=== PATIENT | female | born 2000 | race Two or more races ===

== ENCOUNTER 2020-01-05 21:05 | Outpatient (CLI) | payer BC, MEDICAID ==
[~2020-01-05] VITALS: Ht 157.5 cm; Wt 80.0 kg
[2020-01-05] MEDS ORDERED: PREN1TAB60 PO (21:38)
[2020-01-05] MEDS ORDERED: LACTATED RINGERS 1,000 ML IVBOLUS ONE (22:00)
[2020-01-05] MEDS ORDERED: ONDANSETRON 2MG/ML, 2ML IVPush PRN (22:00)
[2020-01-05] MEDS ORDERED: ONDANSETRON ODT 4 MG PO ONE (22:00)
[2020-01-05 22:01] LABS: MICROSCOPIC NOT IND
[2020-01-05 22:37] LABS: MEAN CORPUSCULAR HEMOGLOBIN 26.8 pg (27.0-34.8); MEAN CORPUSCULAR HGB CONC 32.6 g/dL (32.4-35.8); MEAN CORPUSCULAR VOLUME 82.2 fL (80-100); MEAN PLATELET VOLUME 9.3 fL (7.4-10.4); PLATELET COUNT 294 x10^3/uL (130-400); RED BLOOD COUNT 4.69 x10^6/uL (3.82-5.3); RED CELL DISTRIBUTION WIDTH 14.3 % (9.6-15.2)
[2020-01-05] MEDS ORDERED: ONDANSETRON 2MG/ML, 2ML ONE (22:37)
[2020-01-05 22:40] VITALS: BP 111/67
[2020-01-05 22:48] LABS: ALANINE AMINOTRANSFERASE 22 U/L (12-78); ALBUMIN 2.5 g/dL (3.4-5.0); ANION GAP 10 mmol/L (5-15); CALCIUM 8.8 mg/dL (8.5-10.1); CHLORIDE 104 mmol/L (98-107); CREATININE 0.59 mg/dL (0.55-1.02)
[2020-01-05 22:51] LABS: ALKALINE PHOSPHATASE 155 U/L (45-117); BILIRUBIN,TOTAL 0.4 mg/dL (0.2-1.0); TOTAL PROTEIN 7.1 g/dL (6.4-8.2)
[2020-01-05 22:59] LABS: MD YES
[2020-01-05 23:01] LABS: BASOS% (MANUAL) 1 % (0-1); LYMPH#(MANUAL) 3.56 x10^3/uL (1-6.1); LYMPHS% (MANUAL) 18 % (22-44); MONOS#(MANUAL) 1.58 x10^3/uL (0.3-2.7); MONOS% (MANUAL) 8 % (2-9); SEG#(MANUAL) 14.45 x10^3/uL (1.8-8); SEGS% (MANUAL) 73 % (42-75)
[2020-01-05 23:02] LABS: <PLATELET ESTIMATE> ADEQUATE; <PLT MORPHOLOGY> NORMAL PLT MORPH; <RBC MORPHOLOGY> NORMAL
== END 2020-01-06 00:18 | disposition home or self-care (01) ==
LOC: LDOP 21:05
PROVIDERS: ATTEND Obstetrics & Gynecology
DX: R11.2 Nausea with vomiting, unspecified (principal); R10.11 Right upper quadrant pain
CPT/HCPCS: 36415; 59025; 76705; 80053; 81003; 82150; 83690; 85025; 87086; 96361; 96374; J2405; J7120; 96360; 96366

== ENCOUNTER 2020-02-21 04:29 | Outpatient (CLI) | payer BC, MEDICAID ==
[~2020-02-21] VITALS: Ht 157.5 cm; Wt 90.0 kg
[~2020-02-21 04:29] MED LIST: PREN1TAB60 PO
[2020-02-21 04:47] VITALS: BP 120/70
== END 2020-02-21 04:45 | disposition home or self-care (01) ==
LOC: LDOP 04:29
PROVIDERS: ATTEND Obstetrics & Gynecology
DX: Z02.9 Encounter for administrative examinations, unspecified (principal)

== ENCOUNTER 2020-03-03 05:56 | Inpatient (IN) | payer BC, MEDICAID ==
[~2020-03-03] VITALS: Ht 157.5 cm; Wt 94.1 kg
[2020-03-03] MEDS ORDERED: OXYTOCIN 30U/ 0.9% NaCL 500ML 500 ML IV ONE (06:01)
[2020-03-03 06:12] VITALS: BP 134/84
[2020-03-03 06:26] LABS: BASOPHILS # (AUTO) 0.07 x10^3/uL (0-0.3); BASOPHILS % (AUTO) 0 % (0-1); EOSINOPHILS % (AUTO) 1 % (1-7); LYMPHOCYTES # (AUTO) 2.83 x10^3/uL (1-6.1); LYMPHOCYTES % (AUTO) 19 % (22-44); MD NO; MEAN CORPUSCULAR HEMOGLOBIN 25.6 pg (27.0-34.8); MEAN CORPUSCULAR HGB CONC 32.6 g/dL (32.4-35.8); MEAN PLATELET VOLUME 9.7 fL (7.4-10.4); MONOCYTES # (AUTO) 0.78 x10^3/uL (0-1.4); MONOCYTES % (AUTO) 5 % (2-9); NEUTROPHILS % (AUTO) 75 % (42-75); PLATELET COUNT 305 x10^3/uL (130-400); RED BLOOD COUNT 4.59 x10^6/uL (3.82-5.3); RED CELL DISTRIBUTION WIDTH 16.8 % (9.6-15.2)
[2020-03-03] MEDS ORDERED: TERBUTALINE 1 MG/ML, 1ML SQ PRN (06:30)
[2020-03-03] MEDS ORDERED: NEWBORN KIT ONE (06:32)
[2020-03-03] MEDS ORDERED: MISOPROSTOL 25 MCG TABLET ONE (07:35)
[2020-03-03] MEDS ORDERED: MISOPROSTOL 25 MCG TABLET PO PRN (08:00)
[2020-03-03] MEDS ORDERED: FENTANYL PF 100 MCG/2ML ONE ×4 (12:14→21:41)
[2020-03-03] MEDS ORDERED: D5%-LACTATED RINGERS 1,000 ML IV SCH (12:20)
[2020-03-03] MEDS: FENTANYL PF 100 MCG/2ML IVPush PRN ×2 (12:24→13:22)
[2020-03-03] MEDS ORDERED: ONDANSETRON 2MG/ML, 2ML IVPush PRN (12:30)
[2020-03-03] MEDS ORDERED: FENTANYL PF 100 MCG/2ML IV PRN (12:30)
[2020-03-03] MEDS ORDERED: FENTANYL/BUPIV./NS/PF 250 ML EPIDCONT ONE (13:30)
[2020-03-03] MEDS ORDERED: LACTATED RINGERS 1,000 ML IV SCH ×2 (13:30→17:09)
[2020-03-03] MEDS ORDERED: LACTATED RINGERS 1,000 ML INTUTE SCH (15:30)
[2020-03-03] MEDS: LACTATED RINGERS 1,000 ML INTUTE PRN ×2 (15:33→17:04)
[2020-03-03] MEDS ORDERED: TERBUTALINE 1 MG/ML, 1ML ONE ×4 (15:51→20:54)
[2020-03-03] MEDS: TERBUTALINE 1 MG/ML, 1ML IVPush PRN ×2 (15:54→17:45)
[2020-03-03] MEDS ORDERED: METOCLOPRAMIDE 5 MG/ML, 2ML ONE (16:01)
[2020-03-03] MEDS ORDERED: METOCLOPRAMIDE 5 MG/ML, 2ML IV ONE ×2 (16:30→21:00)
[2020-03-03] MEDS ORDERED: SODIUM CITRATE/CITRIC ACID 30 ML UDC PO ONE ×2 (16:30→21:00)
[2020-03-03] MEDS ORDERED: AZITHROMYCIN 500 MG in SODIUM CHLORIDE 0.9% 250 ML IV ONE ×2 (16:30→21:00)
[2020-03-03] MEDS ORDERED: DIPHENHYDRAMINE 50 MG/ML, 1ML ONE (16:34)
[2020-03-03] MEDS: DIPHENHYDRAMINE 50 MG/ML, 1ML IVPush SCH ×2 (16:44→17:05)
[2020-03-03] MEDS ORDERED: FENTANYL/BUPIV./NS/PF 250 ML EPIDCONT SCH (17:09)
[2020-03-03] MEDS ORDERED: OXYTOCIN 30U/ 0.9% NaCL 500ML 500 ML ONE (17:15)
[2020-03-03] MEDS: LACTATED RINGERS 1,000 ML IV SCH ×4 (17:23→22:18)
[2020-03-03] MEDS ORDERED: LACTATED RINGERS 1,000 ML IVBOLUS PRN (17:30)
[2020-03-03] MEDS ORDERED: EPHEDRINE 50 MG/ML, 1ML IVPush PRN (17:30)
[2020-03-03] MEDS ORDERED: CEFAZOLIN PMX 1GM/50ML 50 ML IVPB ONE (21:00)
[2020-03-03] MEDS ORDERED: LACTATED RINGERS 1,000 ML IVBOLUS ONE (21:00)
[2020-03-03] MEDS ORDERED: KETAMINE 10 MG/ML, 20ML ONE (21:24)
[2020-03-03] MEDS ORDERED: MIDAZOLAM 1 MG/ML, 2ML ONE (21:49)
[2020-03-03] MEDS ORDERED: METOPROLOL 1 MG/ML, 5ML ONE (22:04)
[2020-03-03] MEDS ORDERED: LIDOCAINE-MPF 2% ,5ML ONE ×4 (22:04)
[2020-03-03] MEDS: OXYTOCIN 30U/ 0.9% NaCL 500ML 500 ML IV SCH (22:18)
[2020-03-03] MEDS ORDERED: ONDANSETRON 2MG/ML, 2ML ONE (22:24)
[2020-03-03] MEDS ORDERED: OXYTOCIN 10 UNITS/ML, 1ML ONE ×2 (22:24)
[2020-03-03] MEDS ORDERED: TRANEXAMIC ACID 100 MG/ML, 10ML IV ONE (22:30)
[2020-03-03] MEDS ORDERED: ONDANSETRON 2MG/ML, 2ML IV PRN (22:30)
[2020-03-03] MEDS ORDERED: ACETAMINOPHEN 325 MG TABLET PO PRN ×2 (22:30)
[2020-03-03] MEDS ORDERED: CALCIUM CARBONATE 500 MG TAB.CHEW PO PRN (22:30)
[2020-03-03] MEDS ORDERED: METHYLERGONOVINE 0.2 MG/ML IM PRN (22:30)
[2020-03-03] MEDS ORDERED: MISOPROSTOL 200 MCG TABLET PR PRN (22:30)
[2020-03-03] MEDS ORDERED: OXYcodone IR 5MG TABLET PO PRN (22:30)
[2020-03-03] MEDS ORDERED: PHENYLEPHRINE 10 MG/ML ONE (22:33)
[2020-03-03] MEDS ORDERED: KETOROLAC 30 MG/1 ML ONE (22:43)
[2020-03-03] MEDS: KETOROLAC 30 MG/1 ML IV SCH (22:45)
[2020-03-04] VITALS (7 sets, daily range): BP systolic 106–131; BP diastolic 63–90
[2020-03-04] MEDS: KETOROLAC 30 MG/1 ML IV SCH ×4 (04:21→22:16)
[2020-03-04] MEDS: LACTATED RINGERS 1,000 ML IV SCH ×3 (04:26→08:18)
[2020-03-04 06:02] LABS: BASOPHILS # (AUTO) 0.01 x10^3/uL (0-0.3); BASOPHILS % (AUTO) 0 % (0-1); EOSINOPHILS # (AUTO) 0.09 x10^3/uL (0-0.8); EOSINOPHILS % (AUTO) 1 % (1-7); LYMPHOCYTES # (AUTO) 1.73 x10^3/uL (1-6.1); LYMPHOCYTES % (AUTO) 11 % (22-44); MD NO; MEAN CORPUSCULAR HEMOGLOBIN 27.2 pg (27.0-34.8); MEAN CORPUSCULAR HGB CONC 34.7 g/dL (32.4-35.8); MEAN PLATELET VOLUME 9.5 fL (7.4-10.4); MONOCYTES # (AUTO) 0.91 x10^3/uL (0-1.4); MONOCYTES % (AUTO) 6 % (2-9); NEUTROPHILS # (AUTO) 12.52 x10^3/uL (1.8-8.0); NEUTROPHILS % (AUTO) 82 % (42-75); PLATELET COUNT 228 x10^3/uL (130-400); RED BLOOD COUNT 3.68 x10^6/uL (3.82-5.3); RED CELL DISTRIBUTION WIDTH 16.8 % (9.6-15.2)
[2020-03-04] MEDS: SIMETHICONE 80 MG CHEW TAB PO PRN (07:59)
[2020-03-04] MEDS: PRENATAL VIT/IRON/FA 1 EACH TABLET PO SCH (08:00)
[2020-03-04] MEDS: DOCUSATE 100 MG CAPSULE PO PRN ×2 (08:00→19:11)
[2020-03-04] MEDS: OXYcodone/APAP 5/325MG TABLET PO PRN ×4 (08:00→22:21)
[2020-03-04] MEDS: OXYTOCIN 30U/ 0.9% NaCL 500ML 500 ML IV SCH (08:18)
[2020-03-05] MEDS: KETOROLAC 30 MG/1 ML IV SCH ×3 (04:24→16:35)
[2020-03-05] MEDS: OXYcodone/APAP 5/325MG TABLET PO PRN ×4 (04:24→21:46)
[2020-03-05 07:20] VITALS: BP 118/77
[2020-03-05] MEDS: DOCUSATE 100 MG CAPSULE PO PRN ×2 (08:10→21:46)
[2020-03-05] MEDS: SIMETHICONE 80 MG CHEW TAB PO PRN ×3 (08:10→21:46)
[2020-03-05] MEDS: PRENATAL VIT/IRON/FA 1 EACH TABLET PO SCH (08:10)
[2020-03-05 20:45] VITALS: BP 127/80
[2020-03-06] MEDS: OXYcodone/APAP 5/325MG TABLET PO PRN ×2 (01:12→09:22)
[2020-03-06] MEDS: IBUPROFEN 800 MG TABLET PO PRN ×2 (01:12→09:21)
[2020-03-06] MEDS: PRENATAL VIT/IRON/FA 1 EACH TABLET PO SCH (09:21)
[2020-03-06] MEDS: DOCUSATE 100 MG CAPSULE PO PRN (09:21)
[2020-03-06 09:22] VITALS: BP 122/76
[2020-03-06] MEDS ORDERED: DOCU100C33 PO (13:12)
[2020-03-06] MEDS ORDERED: OXYC-302 PO (13:13)
[2020-03-06] MEDS ORDERED: IBUP-1223 PO (13:13)
[2020-03-06] MEDS ORDERED: FERR324T5 PO (13:14)
[2020-03-06] MEDS ORDERED: ACET325T26 PO (13:15)
[2020-03-06] MEDS ORDERED: CALC500T29 PO (13:16)
[2020-03-06] MEDS ORDERED: SIME80TA15 PO (13:17)
== END 2020-03-06 13:50 | disposition home or self-care (01) | DRG 788 ==
LOC: LDIP 05:56 → 2NW 03-04 00:08
PROVIDERS: ADMIT Obstetrics & Gynecology; ATTEND Obstetrics & Gynecology
PROC: 10D00Z1 Extraction of Products of Conception, Low, Open Approach (ICD-10-PCS; principal; 2020-03-03)
PROC: 10907ZC Drainage of Amniotic Fluid, Therapeutic from Products of Conception, Via Natural or Artificial Opening (ICD-10-PCS; 2020-03-03)
PROC: 10H07YZ Insertion of Other Device into Products of Conception, Via Natural or Artificial Opening (ICD-10-PCS; 2020-03-03)
DX: O76 Abnormality in fetal heart rate and rhythm complicating labor and delivery (principal); Z37.0 Single live birth; Z3A.39 39 weeks gestation of pregnancy; Z03.818 Encounter for observation for suspected exposure to other biological agents ruled out
CPT/HCPCS: 36415; J3490; J7121; 85025; 86592; 86850; 86900; 87635; G0378; J0456; J1885; J2250; J2405; J3010; J1200; J2370; J2590; J2765; J3105; J7050; J7120

== ENCOUNTER 2020-04-11 13:27 | Emergency (ER) | payer BC, MEDICAID ==
[~2020-04-11] VITALS: Ht 157.5 cm; Wt 80.6 kg
[~2020-04-11 13:27] MED LIST changes: +ACET325T26 PO; +CALC500T29 PO; +DOCU100C33 PO; +FERR324T5 PO; +IBUP-1223 PO; +OXYC-302 PO; +SIME80TA15 PO
[2020-04-11] MEDS ORDERED: MAALOX/HYOSCYAMINE/LIDOCAINE 45 ML BTL ONE (13:50)
[2020-04-11] MEDS ORDERED: ONDANSETRON 2MG/ML, 2ML ONE (13:50)
[2020-04-11] MEDS ORDERED: FAMOTIDINE 20 MG/2 ML ONE (13:51)
[2020-04-11] MEDS ORDERED: ONDANSETRON 2MG/ML, 2ML IVPush ONE (14:00)
[2020-04-11] MEDS ORDERED: SODIUM CHLORIDE 0.9% 1,000ML IVBOLUS ONE (14:00)
[2020-04-11] MEDS ORDERED: SODIUM CHLORIDE FLUSH 10ML SYR IVF ONE (14:00)
[2020-04-11] MEDS ORDERED: FAMOTIDINE 20 MG TABLET PO ONE (14:00)
[2020-04-11] MEDS ORDERED: MAALOX/HYOSCYAMINE/LIDOCAINE 45 ML BTL PO ONE (14:00)
[2020-04-11] MEDS ORDERED: FAMOTIDINE 20 MG/2 ML IVPush ONE (14:00)
[2020-04-11 14:05] LABS: BASOPHILS % (AUTO) 1 % (0-1); EOSINOPHILS % (AUTO) 0 % (1-7); LYMPHOCYTES % (AUTO) 11 % (22-44); MEAN CORPUSCULAR HGB CONC 31.3 g/dL (32.4-35.8); MEAN PLATELET VOLUME 8.8 fL (7.4-10.4); MONOCYTES % (AUTO) 3 % (2-9); NEUTROPHILS % (AUTO) 85 % (42-75); PLATELET COUNT 341 x10^3/uL (130-400); RED BLOOD COUNT 5.05 x10^6/uL (3.82-5.3); RED CELL DISTRIBUTION WIDTH 16.4 % (9.6-15.2)
[2020-04-11 14:15] LABS: ALANINE AMINOTRANSFERASE 32 U/L (12-78); ALBUMIN 3.8 g/dL (3.4-5.0); ANION GAP 5 mmol/L (5-15); CHLORIDE 111 mmol/L (98-107); CREATININE 0.78 mg/dL (0.55-1.02)
[2020-04-11 14:17] LABS: ALKALINE PHOSPHATASE 144 U/L (45-117); BILIRUBIN,TOTAL 0.3 mg/dL (0.2-1.0)
[2020-04-11 14:31] LABS: MD SCAN
[2020-04-11] MEDS ORDERED: MORPHINE SULFATE 4 MG/ML, 1ML ONE (14:42)
[2020-04-11] MEDS ORDERED: MORPHINE SULFATE 4 MG/ML, 1ML IVPush PRN (15:00)
[2020-04-11 15:12] VITALS: BP 125/83
== END 2020-04-11 15:34 | disposition home or self-care (01) ==
LOC: ED 14:01
DX: K29.01 Acute gastritis with bleeding (principal); R10.13 Epigastric pain; R10.9 Unspecified abdominal pain; R11.2 Nausea with vomiting, unspecified
CPT/HCPCS: 36415; 76700; 80053; 83690; 85025; 96361; 96374; 96375; 99284; J2270; J2405; J7030

== ENCOUNTER 2020-04-12 21:53 | Observation (INO) | payer BC, MEDICAID ==
[~2020-04-12] VITALS: Ht 157.5 cm; Wt 89.0 kg
--- NOTE | 2020-04-12 22:47 | NUR ---
PT STATES HAVING RT SIDED AB PAIN THAT STARTED AT 0700 THIS MORNING. PT STATES HAVING 3 WEEKS AGO, AND TAKING A PLAN B PILL ABOUT A WEEK AGO AND HAVING SOME BLOODY DISCHAGE. PT DENIES N/V. PT PLACED ON MONITORS AND URINE COLLECTED. Addendum: 04/12/20 at 2255 by MEGHA PT STATES WAS 6 WEEKS AGO NOT 3 WEEKS
[2020-04-12 23:05] LABS: ALBUMIN 3.2 g/dL (3.4-5.0); ANION GAP 5 mmol/L (5-15); CALCIUM 8.8 mg/dL (8.5-10.1); CHLORIDE 108 mmol/L (98-107)
--- NOTE | 2020-04-12 23:05 | NUR ---
ERP UPDATED ON PT TAKING PLAN B AND HAVING BLOODY DISCHARGE
[2020-04-12 23:06] LABS: BASOPHILS % (AUTO) 1 % (0-1); EOSINOPHILS % (AUTO) 1 % (1-7); LYMPHOCYTES % (AUTO) 22 % (22-44); MEAN CORPUSCULAR HEMOGLOBIN 24.2 pg (27.0-34.8); MEAN CORPUSCULAR HGB CONC 31.6 g/dL (32.4-35.8); MEAN PLATELET VOLUME 8.9 fL (7.4-10.4); MONOCYTES % (AUTO) 5 % (2-9); NEUTROPHILS % (AUTO) 71 % (42-75); PLATELET COUNT 303 x10^3/uL (130-400); RED CELL DISTRIBUTION WIDTH 16.5 % (9.6-15.2)
[2020-04-12 23:11] LABS: ALANINE AMINOTRANSFERASE 18 U/L (12-78); ALKALINE PHOSPHATASE 118 U/L (45-117); BILIRUBIN,TOTAL 0.3 mg/dL (0.2-1.0); CREATININE 0.76 mg/dL (0.55-1.02)
[2020-04-12 23:18] LABS: MICROSCOPIC INDICATED
[2020-04-12 23:24] LABS: MD NO
--- NOTE | 2020-04-12 23:47 | NUR ---
PT TO CT
[2020-04-12] MEDS ORDERED: OMNIPAQUE 350 MG/ML, 100ML BOTTLE ONE (23:57)
[2020-04-13] MEDS ORDERED: CEFOTETAN PMX 1GM/50ML 50 ML IVPB ONE (01:00)
[2020-04-13] MEDS ORDERED: MORPHINE SULFATE 4 MG/ML, 1ML IVPush PRN ×2 (01:00→07:00)
[2020-04-13] MEDS ORDERED: SODIUM CHLORIDE 0.9% 1,000 ML IV ONE (01:00)
[2020-04-13] MEDS ORDERED: ONDANSETRON 2MG/ML, 2ML IVPush PRN ×3 (01:00→07:00)
--- NOTE | 2020-04-13 01:06 | NUR ---
OR CALLED ABEL ESPINOZA WHILE ON BREAK. REQUESTED COVID SWAB AND TEST. COVID SWAB SENT TO LAB, AND ERP STATED THAT PT IS NOT BECAUSE SHE TOOK PLAN B AND WAS RECENTLY . WILL UPDATE RN DURING REPORT.
[2020-04-13] MEDS ORDERED: SUCR1TAB33 PO (01:23)
[2020-04-13] MEDS ORDERED: ONDA4TAB7 PO ×2 (01:24→09:48)
--- NOTE | 2020-04-13 01:57 | NUR ---
REPORT GIVEN TO ABEL GUTIERREZ.
[2020-04-13] MEDS ORDERED: BUPIVACAINE/PF 0.5% ONE (02:00)
[2020-04-13] MEDS ORDERED: EPINEPHRINE 1 MG/ML, 1ML ONE (02:00)
[2020-04-13] MEDS ORDERED: OMEP20CA20 PO (02:32)
[2020-04-13 03:27] VITALS: BP 103/69
[2020-04-13] MEDS ORDERED: BUPIVACAINE/PF-EPI 0.5% 1:200K INFIL ONE (04:51)
[2020-04-13] MEDS ORDERED: PROPOFOL 50 ML ONE (05:44)
[2020-04-13] MEDS ORDERED: FENTANYL PF 250 MCG/5ML ONE (05:44)
[2020-04-13] MEDS ORDERED: SUCCINYLCHOLINE 20 MG/ML, 10ML ONE (05:48)
[2020-04-13] MEDS ORDERED: DEXAMETHASONE 4 MG/ML, 1ML ONE (05:48)
[2020-04-13] MEDS ORDERED: ROCURONIUM 10 MG/ML,10ML ONE (05:48)
[2020-04-13] MEDS ORDERED: ONDANSETRON 2MG/ML, 2ML ONE (05:48)
[2020-04-13] MEDS ORDERED: EPHEDRINE 50 MG/ML, 1ML IVPush PRN (06:00)
[2020-04-13] MEDS ORDERED: MEPERIDINE/PF 25MG/0.5ML IVPush PRN (06:00)
[2020-04-13] MEDS ORDERED: DIPHENHYDRAMINE 50 MG/ML, 1ML IVPush PRN (06:00)
[2020-04-13] MEDS ORDERED: LABETALOL 5MG/ML, 20ML IV PRN (06:00)
[2020-04-13] MEDS ORDERED: OXYcodone 5 MG/5 ML ORAL.SOL UDC PO PRN (06:00)
[2020-04-13] MEDS ORDERED: ACETAMINOPHEN 325 MG TABLET PO PRN (06:00)
[2020-04-13] MEDS ORDERED: morphine SULFATE 10 MG/ML, 1ML IVPush PRN (06:00)
[2020-04-13] MEDS ORDERED: EPHEDRINE 50 MG/ML, 1ML IM PRN (06:00)
[2020-04-13] MEDS ORDERED: PROMETHAZINE 25 MG/ML, 1ML IVPush PRN (06:00)
[2020-04-13] MEDS ORDERED: DIAZEPAM 5 MG/ML, 2ML IVPush PRN (06:00)
[2020-04-13] MEDS ORDERED: FENTANYL PF 100 MCG/2ML IV PRN (06:00)
[2020-04-13] MEDS ORDERED: KETOROLAC 30 MG/1 ML ONE (06:57)
[2020-04-13] MEDS ORDERED: ACETAMINOPHEN 650 MG/20.3 ML UDC PO PRN (07:00)
[2020-04-13] MEDS ORDERED: HYDROcodone/APAP 5/325 TABLET PO PRN (07:00)
[2020-04-13] MEDS ORDERED: KETOROLAC 30 MG/1 ML IV PRN (07:00)
[2020-04-13] MEDS ORDERED: POTASSIUM CHLORIDE 20 MEQ in D5%-0.45% NACL 1,000 ML IV SCH (07:00)
[2020-04-13] MEDS ORDERED: FENTANYL PF 100 MCG/2ML ONE (07:01)
[2020-04-13] MEDS ORDERED: ACETAMINOPHEN 650 MG/20.3 ML UDC ONE (07:01)
[2020-04-13] MEDS ORDERED: OXYcodone 5 MG/5 ML ORAL.SOL UDC ONE (07:01)
[2020-04-13 08:00] VITALS: BP 110/66
[2020-04-13] MEDS ORDERED: DOCUSATE 100 MG CAPSULE PO SCH (09:00)
[2020-04-13] MEDS ORDERED: FERROUS GLUCONATE 324 MG TABLET PO SCH (09:00)
[2020-04-13] MEDS ORDERED: ONDANSETRON 4 MG TABLET PO PRN (09:00)
[2020-04-13] MEDS ORDERED: SIMETHICONE 80 MG CHEW TAB PO PRN (09:00)
[2020-04-13] MEDS ORDERED: HYDR-3240 PO (09:48)
[2020-04-13 10:24] VITALS: BP 104/62
[2020-04-13] MEDS ORDERED: SUCRALFATE 1 GM TABLET PO SCH (11:00)
[2020-04-14] MEDS ORDERED: OMEPRAZOLE 20 MG CAPSULE.DR PO SCH (06:00)
== END 2020-04-13 12:30 | disposition home or self-care (01) ==
LOC: ED 22:50 → EDIP 04-13 01:36 → INTOOBSV 04-13 01:36 → 4NE 04-13 02:23 → DCLOUNGE 04-13 12:22
PROVIDERS: ADMIT Surgery; ATTEND Surgery
DX: K35.80 Unspecified acute appendicitis (principal); Z20.828 Contact with and (suspected) exposure to other viral communicable diseases; N85.2 Hypertrophy of uterus; N93.8 Other specified abnormal uterine and vaginal bleeding; D72.829 Elevated white blood cell count, unspecified; F12.90 Cannabis use, unspecified, uncomplicated; Z79.899 Other long term (current) drug therapy
CPT/HCPCS: 36415; 44970; 74177; 80053; 81001; 83690; 84703; 85025; 87086; 87635; 88304; 96361; 96365; 99285; G0378; J0171; J0330; J1100; J1885; J2405; J2704; J3010; J3480; J7030; Q9967; S0020; 96366